=== PATIENT | male | born 1980 | race Caucasian/White ===

== ENCOUNTER 2018-06-18 12:38 | Emergency (ER) | payer SELFPAY ==
[~2018-06-18] VITALS: Ht 180.3 cm; Wt 77.3 kg
[2018-06-18 12:46] VITALS: Ht 180.3 cm; Wt 77.3 kg
[2018-06-18 15:15] VITALS: BP 142/088
== END 2018-06-18 15:18 | disposition home or self-care (01) ==
LOC: D.ER 12:38
DX: S62.306A Unspecified fracture of fifth metacarpal bone, right hand, initial encounter for closed fracture (principal); W18.09XA Striking against other object with subsequent fall, initial encounter; Y93.89 Activity, other specified; Y92.019 Unspecified place in single-family (private) house as the place of occurrence of the external cause; F17.200 Nicotine dependence, unspecified, uncomplicated